=== PATIENT | male | born 1990 | race Caucasian/White ===

== ENCOUNTER 2016-06-01 15:23 | Emergency (ER) | payer OTHER ==
[~2016-06-01 15:23] MED LIST: CEFDINIR300 MG PO; MOTRIN600 MG PO; PAIN RELIEF650 MG PO; TAMIFLU75 MG PO; ZITHROMAX250 MG PO
== END 2016-06-01 16:40 | disposition home or self-care (01) ==
LOC: ER 15:23
DX: K02.9 Dental caries, unspecified (principal); K08.89 Other specified disorders of teeth and supporting structures
CPT/HCPCS: 99282